=== PATIENT | female | born 1965 | race Caucasian/White ===

== ENCOUNTER → 2017-10-11 | Outpatient (CLI) | payer OTHER | END | disposition home or self-care (01) | LOC: PPH VACUNA 16:32 | DX: Z23 Encounter for immunization (principal) ==

== ENCOUNTER 2018-10-17 09:15 | Outpatient (CLI) | payer OTHER | END 2018-10-17 09:21 | disposition home or self-care (01) | LOC: MAMO-SONO 09:15 → SONOGRAMA 09:45 → MAMO-SONO 10:15 | DX: N60.11 Diffuse cystic mastopathy of right breast (principal); N60.12 Diffuse cystic mastopathy of left breast; N92.1 Excessive and frequent menstruation with irregular cycle; E04.2 Nontoxic multinodular goiter ==

== ENCOUNTER 2019-10-04 12:36 | Outpatient (CLI) | payer OTHER ==
[~2019-10-04] VITALS: Ht 160 cm; Wt 66.7 kg
== END 2019-10-04 12:56 | disposition home or self-care (01) ==
LOC: OFIC 805 12:36
DX: H90.0 Conductive hearing loss, bilateral (principal); H93.11 Tinnitus, right ear; H61.23 Impacted cerumen, bilateral

== ENCOUNTER 2020-10-02 13:57 | Outpatient (CLI) | payer OTHER | END 2020-10-02 14:13 | disposition HB | LOC: RAD 13:57 → MAMO-SONO 14:45 | PROVIDERS: ATTEND Physical Medicine & Rehabilitation | DX: M25.511 Pain in right shoulder (principal); M54.2 Cervicalgia ==

== ENCOUNTER 2021-10-21 09:24 | Outpatient (CLI) | payer OTHER | END 2021-10-21 09:29 | disposition home or self-care (01) | LOC: MAMO-SONO 09:24 | DX: N60.11 Diffuse cystic mastopathy of right breast (principal); N60.12 Diffuse cystic mastopathy of left breast ==

== ENCOUNTER 2024-04-20 15:29 | Outpatient (CLI) | payer OTHER | END 2024-04-20 15:34 | disposition home or self-care (01) | LOC: MAMO-SONO 15:29 | PROVIDERS: ATTEND Obstetrics & Gynecology Gynecology | DX: N60.11 Diffuse cystic mastopathy of right breast (principal); N60.12 Diffuse cystic mastopathy of left breast ==